=== PATIENT | female | born 1990 | race Caucasian/White ===

== ENCOUNTER 2017-04-26 18:15 | Inpatient (IN) | payer OTHER ==
[2017-04-26] MEDS ORDERED: DEXTROSE 5%-LACTATED RINGERS 1,000 ML IV SCH (20:15)
[2017-04-26 20:18] LABS: BASO % 0.4 % (0-2.0); EOS % 2.4 % (0-4.5); HEMATOCRIT 30.3 % (32.4-45.2); HEMOGLOBIN 9.7 GM/dL (10.7-15.3); LYMPH % 21.9 % (8-40); MCH 23.1 pg (25.7-33.7); MEAN CELL VOLUME 72.3 fl (80-96); MEAN PLT VOLUME 8.2 fl (7.5-11.1); MONO % 5.9 % (3.8-10.2); NEUT % 69.4 % (42.8-82.8); PLATELET COUNT 283 K/MM3 (134-434); RBC 4.18 M/mm3 (3.60-5.2); RDW 16.1 % (11.6-15.6); WHITE BLOOD COUNT 9.6 K/mm3 (4.0-10.0)
--- NOTE | 2017-04-26 20:25 | HP ---
Past Medical History - Primary Care Physician PCP:: Faraz Murdock - Admission Chief Complaint: 27yo P1 with at EGA 38 6/7wk admitted with c/o leaking "green" fluid since 2pm. History of Present Illness: The pt reports leaking small amount of greenish fluid since 2pm, followed by a gush of fluid at ~4pm. On exam the pt was noted to be leaking a small amount of clear fluid but had some clumpy vaginal discharge as well. Nitrazine test was positive. Pituitary microadenoma 4 x 6.5mm Hyperprolactinemia-- off Bromocriptine care began at [facility] and returned to [facility]. [facility] from 15-32 wks of gestation at [facility]. Vaginal GBS Negative History Source: Patient, Medical Record Limitations to Obtaining History: No Limitations - Past Medical History LOGISTICS PLANNER: No: Alzheimer's, CVA, Dementia, Migraine, Multiple Sclerosis, Peripheral Neuropathy, Parkinson's, Seizure, Syncope, TIA, Vertigo, Other Cardiovascular: No: AFIB, Aneurysm, Aortic Insufficiency, Aortic Stenosis, CAD, CHF, Deep Vein Thrombosis, HTN, Hyperlipdemia, ND, Mitral Insufficiency, Mitral Stenosis, Murmur, Pulmonary Hypertension, Other Pulmonary: No: Asthma, Bronchitis, Cancer, COPD, O2 Dependent, Pneumonia, Previously Intubated, Pulmonary Embolus, Pulmonary Fibrosis, Sleep Apnea, Other Gastrointestinal: No: Ascites, Cancer, Constipation, Crohn's Disease, Diverticulitis, Diverticulosis, Esophageal Varices, Gastritis, GERD, GI Bleed, Hemorrhoids, Hiatal Hernia, Inflamatory Bowel Disease, Irritable Bowel Disease, Pancreatitis, Peptic Ulcer Disease, Ulcerative Colitis, Other Hepatobiliary: No: Cirrhosis, Cholelithiasis, Cholecystitis, Choledocholithiasis , Hepatitis A, Hepatitis B, Hepatitis C, Other Renal/: No: Renal Failure, Renal Inusuff, BPH, Cancer, Hematuria, Hemodialysis , Neurogenic Bladder, Renal Calculi, UTI, Other Reproductive: No: Ectopic , Endometriosis, Fibroids, PID, Polycystic Ovary Syndrome, Postmenopausal, Other ...: 2 ...Para: 1 ...Term: 1 ...: 0 ...Spon : 0 ...Induced : 0 ...LMP: 07/28/16 ... Weeks Gestation by Dates: 38.6 ...EDC by Dates: 05/04/17 Heme/Onc: No: Anemia, B12 Deficiency, Bleeding Disorder, Cancer, Current Chemotherapy, Current Radiation Therapy, Hemochromatosis, Hypercoaguable State, Myeloproliferative Synd, Sickle Cell Disease, Sickle Cell Trait, Thrombocytopenia, Other Infectious Disease: No: AIDS, C-Diff, Herpes Zoster, HIV, MRSA, STD's, Tuberculosis, VREF, Other Psych: No: Addictions, Anxiety, Bipolar, Depression, Panic, Psychosis, Schizophrenia, Other Musculoskeletal: No: Bursitis, Chronic low back pain, Hemiparesis, Hemiplegia, Osteoarthritis, Paraplegia, Other Rheumatology: No: Fibromyalgia, Gout, Lupus, Rheumatoid Arthritis, Sarcoidosis, Vasculitis, Other ENT: No: Allergic Rhinitis, Sinusitis, Other Endocrine: Yes: Other (PCOS, hyperprolactinemia, pituitary microadenoma) Dermatology: No: Basal Cell, Cellulitis, Eczema, Melanoma, Psoriasis, Squamous Cell, Other - Past Surgical History Past Surgical History: Yes: Cholecystectomy Hx Myomectomy: No Hx Transabdominal Cerclage: No - Smoking History Smoking history: Never smoked Have you smoked in the past 12 months: No - Alcohol/Substance Use Hx Alcohol Use: No History of Substance Use: reports: None - Social History Usual Living Arrangement: Yes: With Spouse, With Child ADL: Independent Occupation: clerical work History of Recent Travel: No Home Medications - Allergies Allergies/Adverse Reactions: Allergies Allergy/AdvReac Type Severity Reaction Status Date / Time No Known Allergies Allergy Verified 04/26/17 19:14 - Home Medications Home Medications: Ambulatory Orders No Known Home Medication DAILY 04/26/17 Family Disease History - Family Disease History Family Disease History: Other: Father (healthy), Mother (healthy) Review of Systems - Review of Systems Constitutional: reports: Other (mild cramps occasionally) Eyes: reports: No Symptoms HENT: reports: No Symptoms Neck: reports: No Symptoms Cardiovascular: reports: No Symptoms Respiratory: reports: No Symptoms Gastrointestinal: reports: No Symptoms Genitourinary: reports: No Symptoms Breasts: reports: No Symptoms Reported Musculoskeletal: reports: No Symptoms Integumentary: reports: No Symptoms Neurological: reports: No Symptoms Endocrine: reports: No Symptoms Hematology/Lymphatic: reports: No Symptoms Psychiatric: reports: No Symptoms Pain Intensity: 0 Physical Exam - Maternity Vital Signs: Vital Signs Temperature 99.5 F 04/26/17 19:00 Pulse Rate 106 H 04/26/17 19:00 Respiratory Rate 18 04/26/17 19:00 Blood Pressure 114/81 04/26/17 19:00 O2 Sat by Pulse Oximetry (%) Constitutional: Yes: Well Nourished, No Distress, Calm Eyes: Yes: WNL, Conjunctiva Clear HENT: Yes: WNL, Atraumatic, Normocephalic Neck: Yes: WNL, Supple, Trachea Midline Cardiovascular: Yes: WNL, Regular Rate and Rhythm Lungs: Clear to auscultation, Normal air movement Breast(s): Yes: WNL - Abdominal Exam/OB Fundal Height: 39 Number of Fetuses: Single Presentation: Vertex Contractions: Yes Regularity: Irregular Intensity: Unaware Monitor Mode: External Heart Rate (range): 130 Heart Rate Location: Midline Category: I Accelerations: Uniform Decelerations: None - Vaginal Exam/OB Vaginal Bleediing: No Speculum Exam: No Dilatation (cm): 2 Effacement (%): 20 Amniotic Membrane Status: Intact Presentation: Vertex/Position Station: -4 - Physical Exam Musculoskeletal: Yes: WNL Extremities: Yes: WNL Edema: No Edema: LLE: Trace, RLE: Trace Integumentary: Yes: WNL Deep Tendon Reflex Grade: Normal +2 ...Motor Strength: WNL Psychiatric: Yes: WNL, Alert, Oriented Hemorrhage Risk Assessment - Risk Factors Medium Risk Factors: Yes: None High Risk Factors: Yes: None Risk Score: 1 Risk Level: Medium Risk Imaging - Results Ultrasound: Report Reviewed Assessment/Plan 27yo P1 with at EGA 38w6d admitted with PROM for labor induction. Pt is not in labor. Fetus with Category I tracing. Adequate gynecoid pelvimetry on exam. We had long discussion re: risks, benefits, and alternatives of labor induction. I explained the options of expectant management awaiting spontaneous labor, induction of labor, and elective section. The risks of uterine tachysystole, distress, uterine rupture, need for emergency C/S, hemorrhage, infection, scarring, etc. were discussed. We also discussed the risks of meconium aspiration, shoulder dystocia, and anesthesia options. The pt requested to proceed with induction. We discussed the alternative methods of induction with Cervidil, Cytotec, Folley ballon, and pitocin. The pt prefers Cervidil followed by pitocin, if needed.
[2017-04-26] MEDS ORDERED: DINOPROSTONE 10 MG VAGINAL SUPPOSITORY VG ONE (20:30)
[2017-04-26 20:31] LABS: INR 0.96 (0.82-1.09); PROTHROMBIN TIME (PATIENT) 10.9 SEC (9.98-11.88)
[2017-04-26 20:34] LABS: ACTIVATED PTT 27.5 SECONDS (26.9-34.4)
[2017-04-26 20:36] VITALS: BMI 33.3
[2017-04-26 20:52] LABS: ANION GAP 10 (8-16); BLOOD UREA NITROGEN 6 mg/dL (7-18); CALCIUM 8.4 mg/dL (8.5-10.1); CHLORIDE 105 mmol/L (98-107); CO2 22 mmol/L (21-32); CREATININE 0.4 mg/dL (0.55-1.02); GLUCOSE,RANDOM 70 mg/dL (74-106); SODIUM 137 mmol/L (136-145)
[2017-04-26] MEDS ORDERED: BUPIVACAINE HCL/PF 0.25% (2.5MG/ML) 10 ML VIAL ONE (23:44)
--- NOTE | 2017-04-27 | PN ---
Ante-Partal Exam - Subjective Subjective: Pt is c/o painful ctx's. Pt requested epidural. Vital Signs: Vital Signs Temperature 98.1 F 04/26/17 23:00 Pulse Rate 98 H 04/26/17 23:00 Respiratory Rate 20 04/26/17 23:00 Blood Pressure 136/70 04/26/17 23:00 O2 Sat by Pulse Oximetry (%) Bleeding: No Headache: No Visual changes: No Right upper quadrant pain: No Pain (scale 1-10): 8 - Contractions Contractions: Yes Regularity: Irregular Intensity: Moderate Monitor Mode: External - Exam during Labor Heart Rate: 130 Variability: Moderate Heart Rate Location: Midline Category: I Monitor Accelerations: Present Monitor Decelerations: None Exam: Vaginal Dilatation (cm): 3 Effacement (%): 50 Amniotic Membrane Status: Leaking Meconium Staining: Moderate Presentation: Vertex Station: -2 - Intrapartum Hemorrhage Risk Medium Risk Factors: None High Risk Factors: None Risk Score: 0 Risk Level: Low Risk - Assessment/Plan Assessment/Plan: 27yo p1 with PROM undergoing labor induction. Cervidil was removed. Fetus with Category I tracing. Anesthesia was consulted. Plan to monitor labor
[2017-04-27] MEDS ORDERED: FENTANYL/BUPIVACAINE/NS/PF - PCEA - 50 ML DISP.SYRIN EP ONE (00:01)
[2017-04-27] MEDS ORDERED: NALOXONE HCL 0.4 MG/ML VIAL IVPUSH PRN (00:07)
[2017-04-27] MEDS ORDERED: FENTANYL/BUPIVACAINE/NS/PF - PCEA - 50 ML DISP.SYRIN EP SCH (00:15)
[2017-04-27] MEDS ORDERED: OXYTOCIN 20 UNITS in 0.9% NS 20 UNIT/1,000 ML INFUS.BAG IV ONE (01:59)
[2017-04-27] MEDS ORDERED: LIDOCAINE HCL 1% PRESERVATIVE FREE - 30ML VIAL ONE (02:00)
[2017-04-27] MEDS ORDERED: BENZOCAINE 28 GM HEMORRHOIDAL OINTMENT TP PRN (02:57)
[2017-04-27] MEDS ORDERED: METHYLERGONOVINE MALEATE 0.2 MG/1 ML AMP IM PRN (02:57)
[2017-04-27] MEDS ORDERED: BENZOCAINE 20% 57 GM BOTTLE TP PRN (02:57)
[2017-04-27] MEDS ORDERED: BISACODYL 10 MG SUPP.RECT RC PRN (02:57)
[2017-04-27] MEDS ORDERED: WITCH HAZEL 50% (TUCKS) 40 PAD/JAR PAD TP PRN (02:57)
[2017-04-27] MEDS ORDERED: OXYTOCIN 20 UNITS in 0.9% NS 20 UNIT/1,000 ML INFUS.BAG IV SCH (03:00)
[2017-04-27] MEDS ORDERED: CLINDAMYCIN 600MG PREMIX IVPB 600 MG/50 ML BAG IVPB SCH (05:15)
[2017-04-27] MEDS: ACETAMINOPHEN 325 MG TABLET (FP) PO PRN ×2 (05:34→21:50)
[2017-04-27] MEDS ORDERED: GENTAMICIN 80 MG PREMIXED IVPB 80 MG/100 ML BAG IVPB SCH (06:00)
[2017-04-27] MEDS: CLINDAMYCIN 600MG PREMIX IVPB 600 MG/50 ML BAG IVPB SCH ×2 (07:09→18:43)
[2017-04-27] MEDS: GENTAMICIN 80 MG PREMIXED IVPB 80 MG/100 ML BAG IVPB SCH ×3 (08:05→23:58)
[2017-04-27] MEDS: PRENATAL VITAMINS W/ FOLIC ACID TABLET (FP) PO SCH (09:47)
[2017-04-27 10:43] LABS: BASO % 0.2 % (0-2.0); EOS % 0.2 % (0-4.5); HEMATOCRIT 25.4 % (32.4-45.2); HEMOGLOBIN 7.8 GM/dL (10.7-15.3); LYMPH % 13.2 % (8-40); MCH 22.2 pg (25.7-33.7); MCHC 30.7 g/dl (32.0-36.0); MEAN CELL VOLUME 72.1 fl (80-96); MONO % 6.6 % (3.8-10.2); NEUT % 79.8 % (42.8-82.8); PLATELET COUNT 243 K/MM3 (134-434); RBC 3.53 M/mm3 (3.60-5.2); RDW 16.3 % (11.6-15.6); WHITE BLOOD COUNT 13.8 K/mm3 (4.0-10.0)
[2017-04-27] MEDS: IBUPROFEN 600 MG TABLET (FP) PO PRN ×2 (15:45→21:51)
[2017-04-28] MEDS: CLINDAMYCIN 600MG PREMIX IVPB 600 MG/50 ML BAG IVPB SCH (06:22)
[2017-04-28] MEDS: GENTAMICIN 80 MG PREMIXED IVPB 80 MG/100 ML BAG IVPB SCH (08:04)
[2017-04-28 08:57] LABS: BASO % 0.5 % (0-2.0); EOS % 2.8 % (0-4.5); HEMATOCRIT 23.1 % (32.4-45.2); HEMOGLOBIN 7.2 GM/dL (10.7-15.3); LYMPH % 25.9 % (8-40); MCH 22.8 pg (25.7-33.7); MCHC 31.3 g/dl (32.0-36.0); MEAN CELL VOLUME 72.8 fl (80-96); MEAN PLT VOLUME 7.8 fl (7.5-11.1); MONO % 5.7 % (3.8-10.2); NEUT % 65.1 % (42.8-82.8); PLATELET COUNT 242 K/MM3 (134-434); RBC 3.18 M/mm3 (3.60-5.2); RDW 16.2 % (11.6-15.6); WHITE BLOOD COUNT 9.7 K/mm3 (4.0-10.0)
[2017-04-28] MEDS: PRENATAL VITAMINS W/ FOLIC ACID TABLET (FP) PO SCH (09:22)
[2017-04-28] MEDS: ACETAMINOPHEN 325 MG TABLET (FP) PO PRN (19:56)
[2017-04-28] MEDS: IBUPROFEN 600 MG TABLET (FP) PO PRN (19:57)
--- NOTE | 2017-04-28 21:38 | PN ---
Delivery - Delivery Vaginal Delivery: No Problems, Spontaneous Type of Anesthesia: Epidural Episiotomy/Laceration: Midline, Perineal Extension/lac, 2nd degree EBL (cc): 300 Delivery, Single - Stages of Labor Date 1st Stage Initiatied: 04/26/17 Time 1st Stage Initiated: 14:00 Date 2nd Stage Initiated: 04/27/17 Time 2nd Stage Initiated: 02:00 Date of Delivery: 04/27/17 Time of Delivery: 02:30 Date Placenta Delivered: 04/27/17 Time Placenta Delivered: 03:00 Placenta: Yes: Spontaneous, Normal Configuration - Condition of Marketing Project Lead/Rn Bariatric Present: No Infant Gender: Female Weight: 3.487 kg Position: Right, OA Total Hours ROM (Hrs/Mins): 12h30m - 1 Minute Total Score: 9 5 Minutes Total Score: 9 - [place] Feeding Plan Initial Plan: Elected not to breastfeed exclusively throughout hospitalization Benefits of Exclusively reinforced: Yes Remarks - Remarks Remarks: Meconium, uncomplicated
--- NOTE | 2017-04-28 21:41 | PN ---
Post Progress Note - Subjective Subjective: No complaints. Afebrile. Now off abx. No SOB, no chest pain, no dizziness. Post Day: 1 Type of Delivery: Vital Signs: Vital Signs Temperature 98.6 F 04/28/17 08:58 Pulse Rate 91 H 04/28/17 08:58 Respiratory Rate 20 04/28/17 08:58 Blood Pressure 130/79 04/28/17 08:58 O2 Sat by Pulse Oximetry (%) 98 04/27/17 00:45 Breast Exam: Yes: Soft Uterus: Yes: Fundus Firm, Fundus below umbilicus, Non-tender Abdomen/GI: Yes: Abdomen soft, Passing flatus, Tolerating PO Lochia: Yes: Rubra Lochia, amount: Small Extremities: Yes: Calves non-tender, Edema Perineum: Yes: Intact Activity: Ambulating - Labs Labs: CBC WBC 9.7 K/mm3 (4.0-10.0) 04/28/17 07:30 RBC 3.18 M/mm3 (3.60-5.2) L 04/28/17 07:30 Hgb 7.2 GM/dL (10.7-15.3) L 04/28/17 07:30 Hct 23.1 % (32.4-45.2) L 04/28/17 07:30 MCV 72.8 fl (80-96) L 04/28/17 07:30 MCH 22.8 pg (25.7-33.7) L 04/28/17 07:30 MCHC 31.3 g/dl (32.0-36.0) L 04/28/17 07:30 RDW 16.2 % (11.6-15.6) H 04/28/17 07:30 Plt Count 242 K/MM3 (134-434) 04/28/17 07:30 MPV 7.8 fl (7.5-11.1) 04/28/17 07:30 Neutrophils % 65.1 % (42.8-82.8) 04/28/17 07:30 Lymphocytes % 25.9 % (8-40) D 04/28/17 07:30 Monocytes % 5.7 % (3.8-10.2) 04/28/17 07:30 Eosinophils % 2.8 % (0-4.5) D 04/28/17 07:30 Basophils % 0.5 % (0-2.0) 04/28/17 07:30 Assessment/Plan 27yo P2 s/p , doing well stable, afebrile. Aymptomatic for anemia. plan to repear CBC in AM care instructions reviewed. Continue routine care. Ambulation encouraged Discharge instruction reviewed.
--- NOTE | 2017-04-28 21:45 | DS ---
Physical Exam-[facility] Vital Signs: Vital Signs Temperature 98.6 F 04/28/17 08:58 Pulse Rate 91 H 04/28/17 08:58 Respiratory Rate 20 04/28/17 08:58 Blood Pressure 130/79 04/28/17 08:58 O2 Sat by Pulse Oximetry (%) 98 04/27/17 00:45 Constitutional: Yes: Well Nourished, No Distress, Calm Eyes: Yes: WNL, Conjunctiva Clear HENT: Yes: WNL, Atraumatic, Normocephalic Neck: Yes: WNL, Supple, Trachea Midline Cardiovascular: Yes: WNL, Regular Rate and Rhythm Respiratory: Yes: WNL, Regular, CTA Bilaterally Gastrointestinal: Yes: WNL, Normal Bowel Sounds, Soft, Abdomen, Obese ...Rectal Exam: Yes: Deferred Renal/: Yes: WNL ....Post : Yes: Uterus firm, Uterus non-tender, Slight lochia rubra Breast(s): Yes: WNL Musculoskeletal: Yes: WNL Extremities: Yes: WNL Edema: Yes Edema: LLE: Trace, RLE: Trace Integumentary: Yes: WNL Neurological: Yes: WNL, Alert, Oriented ...Motor Strength: WNL Psychiatric: Yes: WNL, Alert, Oriented Labs: CBC, BMP 04/28/17 07:30 04/26/17 20:06 Delivery - Delivery Vaginal Delivery: No Problems, Spontaneous Type of Anesthesia: Epidural Episiotomy/Laceration: Midline, Perineal Extension/lac, 2nd degree EBL (cc): 300 Delivery, Single - Stages of Labor Date 1st Stage Initiatied: 04/26/17 Time 1st Stage Initiated: 14:00 Date 2nd Stage Initiated: 04/27/17 Time 2nd Stage Initiated: 02:00 Date of Delivery: 04/27/17 Time of Delivery: 02:30 Date Placenta Delivered: 04/27/17 Time Placenta Delivered: 03:00 Placenta: Yes: Spontaneous, Normal Configuration - Condition of Avionics Manager/Manager Heart Failure Present: No Infant Gender: Female Weight: 3.487 kg Position: Right, OA Total Hours ROM (Hrs/Mins): 12h30m - 1 Minute Total Score: 9 5 Minutes Total Score: 9 - [place] Feeding Plan Initial Plan: Elected not to breastfeed exclusively throughout hospitalization Benefits of Exclusively reinforced: Yes Remarks - Remarks Remarks: Meconium, uncomplicated Discharge Summary Reason For Visit: ADMIT ROM PROM Labor induction Meconium Anemia due to acute blood loss Procedures: Principal: Other Procedures: insertion of cervical dilator Hospital Course: Normal recovery, asymptomatic for anemia Condition: Good - Instructions Diet, Activity, Other Instructions: Physical activity Resume your normal everyday activity as tolerated no heavy lifting or exercise until seen by your surgeon. You may walk unlimited chay of and climb stairs. You may resume driving the car when you feel safe and comfortable behind the wheel. No sexual activity as instructed. Wound care If you have a bandage, leave it on, and keep dry for 48-72 hours. After that time discard the outer bandage. If they are tapes on the skin under the out of bandage leave them in place. They will peel off in the next 7 to 10 days. Do Not Peel them off. You may shower the day after surgery. If there are tapes present on the skin, you may shower over them. Diet There are no dietary restrictions. Eat healthy, high-fiber foods. Drink 6 to 8 glasses of liquid each day. This will assist in keeping your bowels are regular. Pain management You may take Tylenol or acetaminophen or Ibuprofen (for example, Motrin, Advil etc.) from my pain prescription medication is ordered should be taken as prescribed for moderate to severe pain. Call MD for any of the following: Severe pain not relieved by medication Fever of 101 or higher Excessive bleeding or drainage on dressing Inability to urinate Referrals: Faraz Murdock MD [Staff Physician] - Disposition: HOME
[2017-04-28] MEDS ORDERED: SENNOSIDES/DOCUSATE COMBO (SENNA PLUS) TABLET (UD) PO PRN (22:00)
[2017-04-28] MEDS: FERROUS SO4 325 MG TABLET (FP) PO SCH (22:28)
[2017-04-29] MEDS: IBUPROFEN 600 MG TABLET (FP) PO PRN (07:36)
[2017-04-29] MEDS: ACETAMINOPHEN 325 MG TABLET (FP) PO PRN (07:37)
[2017-04-29 07:45] LABS: BASO % 0.5 % (0-2.0); EOS % 4.9 % (0-4.5); HEMATOCRIT 24.5 % (32.4-45.2); HEMOGLOBIN 7.7 GM/dL (10.7-15.3); LYMPH % 27.3 % (8-40); MCHC 31.5 g/dl (32.0-36.0); MEAN PLT VOLUME 7.6 fl (7.5-11.1); MONO % 5.3 % (3.8-10.2); PLATELET COUNT 264 K/MM3 (134-434); RBC 3.36 M/mm3 (3.60-5.2); RDW 16.4 % (11.6-15.6); WHITE BLOOD COUNT 9.4 K/mm3 (4.0-10.0)
[2017-04-29] MEDS: PRENATAL VITAMINS W/ FOLIC ACID TABLET (FP) PO SCH (09:48)
[2017-04-29] MEDS: FERROUS SO4 325 MG TABLET (FP) PO SCH (09:48)
[2017-04-29 11:03] VITALS: BP 110/74; PULSE 90; TEMP 98.5
== END 2017-04-29 14:00 | disposition home or self-care (01) | DRG 560 ==
LOC: JDEL 18:15 → JLDR 18:45 → J3W 04-27 04:36
PROVIDERS: ADMIT Obstetrics & Gynecology; ATTEND Obstetrics & Gynecology
PROC: 3E0P7VZ Introduction of Hormone into Female Reproductive, Via Natural or Artificial Opening (ICD-10-PCS; 2017-04-26)
PROC: 10E0XZZ Delivery of Products of Conception, External Approach (ICD-10-PCS; principal; 2017-04-27)
PROC: 0W8NXZZ Division of Female Perineum, External Approach (ICD-10-PCS; 2017-04-27)
PROC: 0KQM0ZZ Repair Perineum Muscle, Open Approach (ICD-10-PCS; 2017-04-27)
DX: O70.1 Second degree perineal laceration during delivery (principal); O42.92 Full-term premature rupture of membranes, unspecified as to length of time between rupture and onset of labor; O99.02 Anemia complicating childbirth; D62 Acute posthemorrhagic anemia; Z3A.38 38 weeks gestation of pregnancy; Z37.0 Single live birth
CPT/HCPCS: 36415; 59409; 80048; 85025; 85610; 85730; 86593; 86850; 86900; 86901; 87040; 87086; 87389